=== PATIENT | male | born 1955 | race Caucasian/White ===

== ENCOUNTER 2021-03-03 13:20 | Outpatient (CLI) | payer MEDICARE, SELFPAY ==
--- NOTE | ~2021-03-03 | XR_ITS ---
XR_[id number]_CR 03/03/2021 13:42 Indication: Neck pain Procedure: 3 view cervical spine Comparison: No prior studies for comparison. Findings: Straightening of cervical lordosis. Vertebral body heights are maintained. No fracture or t raumatic malalignment. No prevertebral soft tissue swelling. There are mild uncinate degenerative ju nges. Lung apices are normal. Impression: 1: Mild cervical spondylosis. Reviewed, dictated and finalized at location A. Impression: 1: Mild cervical spondylosis.
== END 2021-03-03 13:21 | disposition home or self-care (01) ==
LOC: ANHIMG 13:27
PROVIDERS: PCP Family Medicine; Visit Provider Family Medicine
DX: M47.892 Other spondylosis, cervical region (principal)
CPT/HCPCS: 72040

== ENCOUNTER 2022-03-30 11:55 | Outpatient (CLI) | payer MEDICARE, SELFPAY ==
--- NOTE | ~2022-03-30 | CT_ITS ---
EXAMINATION: CT abdomen pelvis w con DATE: 03/30/2022 12:26 INDICATION: Left lower quadrant abdominal pain. TECHNIQUE: Computed tomography (CT) of the abdomen and pelvis was performed with 100 mL Omnipaque 300 intravenous contrast. Automated exposure control and iterative reconstruction technique were employe d. The dose-length product was 1362.97 mGy-cm. COMPARISON: None. FINDINGS: The visualized portions of the lung bases demonstrate mild atelectasis. No pleural effusion . The heart size is normal. There are coronary artery calcifications. No pericardial effusion. There is 11 mm cyst in the liver. The gallbladder, spleen, pancreas, adrenal glands, and kidneys are normal . The prostate is severely enlarged. There are changes of bilateral inguinal hernia repairs. There is diverticulosis of the colon without evidence of diverticulitis. There are no dilated loops of bowel. The appendix is normal. There is an umbilical hernia containing fat. There are no pathologically enl arged lymph nodes. There is no free intraperitoneal fluid. There is moderate lumbar spondylosis. Ther e is mild thoracic spondylosis. IMPRESSION: 1. Umbilical hernia containing fat. Reviewed, dictated and finalized at location A.
[2022-03-30 12:23] LABS: Estimated Glomerular Filt Rate > 60
== END 2022-03-30 11:56 | disposition home or self-care (01) ==
PROVIDERS: PCP Family Medicine; Visit Provider Family Medicine
DX: K42.9 Umbilical hernia without obstruction or gangrene (principal)
CPT/HCPCS: 74177; Q9967

== ENCOUNTER 2022-05-10 13:23 | Outpatient (CLI) | payer MEDICARE, SELFPAY ==
[2022-05-10 14:11] LABS: Anion Gap 8 mmol/L (8-16); Blood Urea Nitrogen 17 mg/dL (9-20); Calcium 9.3 mg/dL (8.4-10.2); Carbon Dioxide 29 mmol/L (22-30); Chloride 101 mmol/L (98-107); Estimated Glomerular Filt Rate > 60; Glucose 106 mg/dL (65-110); Potassium 3.5 mmol/L (3.4-5.0); Sodium 138 mmol/L (137-145)
== END 2022-05-10 13:24 | disposition home or self-care (01) ==
LOC: ANHSURGERY 13:33
PROVIDERS: Anesthesiology; PCP Family Medicine; Visit Provider Surgery
DX: I10 Essential (primary) hypertension (principal); Z01.818 Encounter for other preprocedural examination
CPT/HCPCS: 36415; 80048

== ENCOUNTER 2022-05-13 00:56 | Day surgery (SDC) | payer MEDICARE, SELFPAY ==
--- NOTE | 2022-05-07 13:55 | PC.NURSE ---
Report to the Outpatient Waiting Room, entrance under the green pavilion located off [facility], at time _1130 on date _05/13/22 . OR Time: _1:30 PM . - You and your visitor will be asked a series of questions to screen for COVID 19 for your protection. - Only one visitor is allowed at this time. - The patient visitor is requested to leave or wait in car when not with patient. - A mask is required within the hospital. Patients may have clear liquids (water, carbonated beverages, clear teas, apple juice) until 3 hours prior to surgery with a maximum of 20 ounces. - No food from midnight until time of surgery - Infants may have breast milk until 4 hours before surgery, formula 6 hours prior to surgery. - Children will be allowed to drink immediately following surgery. If applicable, please bring a bottle or sippy cup to assist with drinking. Juice, water, soda, and popsicles are readily available. For infants on formula, please bring formula the day of surgery. Pacifiers are allowed. Take the following medications with a SIP of water the morning of surgery: ____SERTRALINE Medications to discontinue per physician __ALL VITAMINS AND SUPPLEMENTS 3 DAYS PRE OP Date to take last dose____05/09/22 Please no make-up, nail upper sorbian, hairspray, perfume, deodorant, or body powder the day of surgery. No jewelry (including any body piercings) or valuables the day of surgery, leave them at home. Please take a shower or bath the night before, or the morning of, surgery with an antibacterial soap. Wear comfortable, loose fitting clothing. Children are encouraged to wear pajamas. - Jewelry must be removed prior to entering the operating room. Rings and piercings that are not removed may be cut off. - The hospital will not accept responsibility for valuables. - Please leave all valuables, including medications, at home the day of surgery. HIBICLENS SHOWER MORNING OF SURGERY If you are going home after surgery, a licensed log truck driver must drive you home. - NO public transportation without another adult. - We recommend that an adult stay with you for 24 hours following discharge. - We also recommend that you do not drive, make important decision, drink alcoholic beverages, or take any drugs that were not prescribed by your health care provider for at least 24 hours after your discharge time. For Pediatric surgeries, we recommend two adults accompany the child home (only one inside the building at this time). Follow any additional instructions given to you from your surgeon. If you or anyone in your household have experienced Covid symptoms in the past week, please notify your surgeon or the nurse liaison at the phone number below for possible testing. Telephone instructions given to __PATIENT and asked if any additional questions and then verbalized understanding. Patient advised to call surgeon office or pre surgery nurse liaison [phone] if any additional questions.
[2022-05-07 14:07] VITALS: BMI 38.7
--- NOTE | 2022-05-13 08:00 | WPDANESEPPF ---
Anes - Initial Pre Proc Eval Procedure: Operation Date: 05/13/22 13:30 Proposed Procedures p Umbilical Hernia Repair, Possible Mesh - Isaias Valladares MD Date/Time: 05/13/22 08:00 Surgeon: Isaias Valladares MD Pre Op Diagnosis: umbilical hernia Patient Data Age: 66 Gender: M Height: 1.78 m Weight: 122.5 kg Allergies Allergy/AdvReac Type Severity Reaction Status Date / Time Fish Containing Products Allergy Severe Swelling Verified 05/13/22 11:38 venom-wasp protein Allergy Severe Hives Verified 05/13/22 11:38 ciprofloxacin [From Cipro] AdvReac Mild Vomiting, Verified 05/13/22 11:38 Stomache Home Medications Medication Instructions Recorded Confirmed Type aspirin 81 mg tablet,delayed 81 mg PO DAILY 09/26/19 05/13/22 History release cholecalciferol (vitamin D3) 50 2,000 unit PO DAILY 09/26/19 05/13/22 History mcg (2,000 unit) tablet lpzqwznt-rca-dqead acid 300 1 tablet PO DAILY 09/26/19 05/13/22 History mcg-lycopene 600 mcg-lutein 300 mcg tablet (Centrum Silver Men) vitamin A-vitamin C-vit E-min 1 tablet PO DAILY 09/26/19 05/13/22 History tablet (Ocutabs tablet) fexofenadine 180 mg tablet 180 mg PO DAILY #90 tabs 01/18/22 05/13/22 Rx omeprazole 20 mg capsule,delayed 20 mg PO DAILY #90 caps 01/18/22 05/13/22 Rx release lisinopril 40 mg tablet See Rx Instructions .Route 03/29/22 05/13/22 Rx .COMPLEX #90 tabs lovastatin 40 mg tablet See Rx Instructions .Route 03/29/22 05/13/22 Rx .COMPLEX #90 tabs triamterene 37.5 See Rx Instructions .Route 03/29/22 05/13/22 Rx mg-hydrochlorothiazide 25 mg tablet .COMPLEX #90 tabs sertraline 50 mg tablet See Rx Instructions .Route 04/01/22 05/13/22 Rx .COMPLEX #90 tabs hydrocodone 5 mg-acetaminophen 325 1 - 2 tablet PO Q6H PRN pain #7 05/13/22 Rx mg tablet tabs ibuprofen 600 mg tablet 600 mg PO Q6H PRN pain #14 tabs 05/13/22 Rx Patient hx anesthesia problems: none Family hx anesthesia problems: none Results Review: All pre-operative results and documents have been reviewed as part of the pre-operative evaluation. [facility] Past Medical History Medical History Allergies Anxiety Family history of colon cancer in mother GERD (gastroesophageal reflux disease) Hyperglycemia Hyperlipidemia Hypertension Surgical History Surgical History Detached retina History of hernia surgery Bilateral inguinal hernia repair History of removal of cyst off chest Family History Family History Mother Hypertension Colon cancer Cerebrovascular accident Father Hypertension Glaucoma Grandparent Uterine cancer Paternal Hypertension Maternal Cerebrovascular accident Maternal Lung cancer maternal Sibling Cerebrovascular accident brother Father Family history of glaucoma Hypertension Mother Hypertension Cerebrovascular accident Carcinoma of colon Grandparent Hypertension Cerebrovascular accident Family history of lung cancer Family history of malignant neoplasm of uterus Sibling Cerebrovascular accident Social History Social History Smoking status: Never smoker Alcohol intake: current Drinks per week: 3 Substance use: never Substance use type: does not use Gender identity (if verbalized by the patient): Male Spiritual care concerns: No Agree to blood products: Yes Anes - Eval Final PreProcedure Day of Procedure 05/13/22 08:00 Patient weight: obese Heart: regular rate and rhythm Lungs: clear to auscultation Airway: Mallampati scale class II Neurological: alert and oriented Last oral intake: >/= 8 hours ASA classification: III Emergent: no Anesthetic plan: proceed Anesthesia type and monitoring: general GIVS and standa
--- NOTE | 2022-05-13 11:55 | WPDANESEPPF ---
Anes - Initial Pre Proc Eval Procedure: Operation Date: 05/13/22 13:30 Proposed Procedures p Umbilical Hernia Repair, Possible Mesh - Isaias Valladares MD Date/Time: 05/13/22 11:55 Surgeon: Isaias Valladares MD Pre Op Diagnosis: umbilical hernia Patient Data Age: 66 Gender: M Height: 1.78 m Weight: 122.5 kg Allergies Allergy/AdvReac Type Severity Reaction Status Date / Time Fish Containing Products Allergy Severe Swelling Verified 05/13/22 11:38 venom-wasp protein Allergy Severe Hives Verified 05/13/22 11:38 ciprofloxacin [From Cipro] AdvReac Mild Vomiting, Verified 05/13/22 11:38 Stomache Home Medications Medication Instructions Recorded Confirmed Type aspirin 81 mg tablet,delayed 81 mg PO DAILY 09/26/19 05/13/22 History release cholecalciferol (vitamin D3) 50 2,000 unit PO DAILY 09/26/19 05/13/22 History mcg (2,000 unit) tablet sbyldfee-lem-eyrqs acid 300 1 tablet PO DAILY 09/26/19 05/13/22 History mcg-lycopene 600 mcg-lutein 300 mcg tablet (Centrum Silver Men) vitamin A-vitamin C-vit E-min 1 tablet PO DAILY 09/26/19 05/13/22 History tablet (Ocutabs tablet) fexofenadine 180 mg tablet 180 mg PO DAILY #90 tabs 01/18/22 05/13/22 Rx omeprazole 20 mg capsule,delayed 20 mg PO DAILY #90 caps 01/18/22 05/13/22 Rx release lisinopril 40 mg tablet See Rx Instructions .Route 03/29/22 05/13/22 Rx .COMPLEX #90 tabs lovastatin 40 mg tablet See Rx Instructions .Route 03/29/22 05/13/22 Rx .COMPLEX #90 tabs triamterene 37.5 See Rx Instructions .Route 03/29/22 05/13/22 Rx mg-hydrochlorothiazide 25 mg tablet .COMPLEX #90 tabs sertraline 50 mg tablet See Rx Instructions .Route 04/01/22 05/13/22 Rx .COMPLEX #90 tabs Patient hx anesthesia problems: none Family hx anesthesia problems: none Results Review: All pre-operative results and documents have been reviewed as part of the pre-operative evaluation. [facility] Past Medical History Medical History Allergies Anxiety Family history of colon cancer in mother GERD (gastroesophageal reflux disease) Hyperglycemia Hyperlipidemia Hypertension Surgical History Surgical History Detached retina History of hernia surgery Bilateral inguinal hernia repair History of removal of cyst off chest Family History Family History Mother Hypertension Colon cancer Cerebrovascular accident Father Hypertension Glaucoma Grandparent Uterine cancer Paternal Hypertension Maternal Cerebrovascular accident Maternal Lung cancer maternal Sibling Cerebrovascular accident brother Father Family history of glaucoma Hypertension Mother Hypertension Cerebrovascular accident Carcinoma of colon Grandparent Hypertension Cerebrovascular accident Family history of lung cancer Family history of malignant neoplasm of uterus Sibling Cerebrovascular accident Social History Social History Smoking status: Never smoker Alcohol intake: current Drinks per week: 3 Substance use: never Substance use type: does not use Living arrangements: with family Gender identity (if verbalized by the patient): Male Spiritual care concerns: No Agree to blood products: Yes Anes - Eval Final PreProcedure Day of Procedure 05/13/22 11:55 Patient weight: obese Heart: regular rate and rhythm Lungs: clear to auscultation Airway: Mallampati scale class II Neurological: alert and oriented Last oral intake: >/= 8 hours ASA classification: III Emergent: no Anesthetic plan: proceed Anesthesia type and monitoring: general GIVS and LMA and standard monitoring Results Review: All pre-operative results and documents have been reviewed as part of the pre-operative evalu
[2022-05-13] MEDS: ACETAMINOPHEN 500 MG TABLET 1000 MG PO (12:13)
[2022-05-13] MEDS: LACTATED RINGERS 1,000 ML 30 ML IV CONT ×2 (12:26→14:45)
[2022-05-13] MEDS: KETOROLAC 15 MG/ML VIAL (*BKC) IV PUSH (12:26)
[2022-05-13 12:56] VITALS: BP 174/73; PULSE 64; RESP 16; TEMP 37.2; O2SAT 98
--- NOTE | 2022-05-13 13:24 | WPDHPUPDATE1 ---
History and Physical Update Update Date/Time: 05/13/22 13:24 History and Physical has been reviewed, including an updated exam of the patient. There are NO changes in the patient's condition. Risks, benefits, and alternatives have been discussed and questions answered. Patient agrees to proceed with procedure.
[2022-05-13] MEDS: ceFAZolin 3 GM/D5W 100 ML 100 ML IVPB (13:44)
[2022-05-13] MEDS: BUPIVACAINE/EPINEPHRINE 0.25% 50 ML VIAL INFILTRATE (14:02)
--- NOTE | 2022-05-13 14:13 | SUR.OPER ---
VENTR[address] ST LOT [id number], EXP 2023-09-06.
[2022-05-13 14:45] VITALS: BP 130/67; PULSE 60; RESP 16
--- NOTE | 2022-05-13 14:50 | P.OP_ITS ---
Procedure Note - Detailed Date of Procedure 05/13/22 Pre-op Diagnosis umbilical hernia Post-op Diagnosis Same Procedure Performed Umbilical hernia repair with Ventralex ST 4.3 cm underlay mesh Surgeon Isaias Valladares MD Principal Examiner EVANGELISTA Quintero Anesthesia General (G IV S) and Local (0.25% Marcaine with epinephrine) Indications Patient was noticing a bulge at the umbilicus and also some abdominal pain. He had a CT scan which showed an umbilical hernia containing fat. Examination also showed an umbilical hernia. He is taken to surgery now for repair. Findings The defect was fairly small, about a cm by 0.4 cm oriented transversely. Description of Procedure Patient was checked in the preoperative holding area. He was then taken to surgery and anesthesia was introduced. The abdomen was prepped and draped. The proposed incision along the lower margin of the umbilicus was drawn on the skin. Local anesthetic was infiltrated into the skin and the deeper subcutaneous tissues. Incision was made and dissection was carried down through the subcutaneous to the hernia. The hernia was dissected free from the subcutaneous and dissected from the umbilical skin as well as the umbilical stalk. The umbilical stalk was freed from the abdominal wall and then we dissected around the hernia defect completely. Additional local was infiltrated into the neck of the hernia and the fascia at the neck. We then divided the hernia sac at its neck and removed the sac as well as herniated properitoneal fat inside it. Defect itself was then checked. I placed a finger in the defect and did not feel any adjacent hernia defects. I cleared a space around the hernia for good apposition of the mesh to the under side of the abdominal wall fascia. Cautery was used for hemostasis. I then undermined the subcutaneous around the hernia defect so that the transfascial sutures could be placed. The 4.[address] hernia patch was chosen. It was placed in the defect and positioned symmetrically. Cranial and caudal transfascial sutures of 0 Ethibond were then placed. Each of these sutures were placed in such a fashion that when tied, they would draw the edges of the hernia defect towards 1 another. Tying down these 2 sutures, that had the desired effect. I then cut the straps to the Ventralex ST mesh. The hernia defect was then closed with [id number] mattress sutures of 0 Ethibond. Each of these sutures incorporated a bit of mesh as well. Once these were tied, the repair looked quite satisfactory. The mesh was completely covered. I infiltrated additional local anesthetic into the fascia all around the repair. I then sutured the umbilical skin to the fascia with interrupted 3-0 Vicryl suture. Some subcutaneous 3-0 Vicryl suture were then placed. The skin was loosely approximated with 4-0 Vicryl subcuticular suture. The skin was finally closed with running 4-0 Monocryl skin suture. Wound was dressed with Exofin surgical adhesive. The patient was awakened and taken to recovery in good condition. Sponge and needle counts were correct x2. Implants 4.[address] hernia patch Estimated Blood Loss -5 Drains No Packing No Pathology None sent Complications No immediate complications Condition Stable Disposition Same day [facility] Billing Surgery - Charge Forward: Surgery Billing (Repair umbilical hernia with mesh)
[2022-05-13 15:15] VITALS: BP 153/74; PULSE 54; RESP 16
[2022-05-13 15:45] VITALS: BP 160/77; PULSE 53; RESP 16
== END 2022-05-13 16:10 | disposition home or self-care (01) ==
PROVIDERS: PCP Family Medicine; Visit Provider Surgery
PROC: (CPT 49585; principal; 2022-05-13 13:30)
DX: K42.9 Umbilical hernia without obstruction or gangrene (principal); I10 Essential (primary) hypertension; E78.5 Hyperlipidemia, unspecified; K21.9 Gastro-esophageal reflux disease without esophagitis; F41.9 Anxiety disorder, unspecified; Z80.0 Family history of malignant neoplasm of digestive organs; E66.9 Obesity, unspecified; Z68.38 Body mass index [BMI] 38.0-38.9, adult; Z79.82 Long term (current) use of aspirin
CPT/HCPCS: 49585; 36415; 80048; A9270; C1781; J0690; J1885; J2704; J3010; J7120

== ENCOUNTER 2023-10-17 12:30 | Outpatient (RCR) | payer MEDICARE, SELFPAY ==
--- NOTE | 2023-08-19 13:12 | PTOPEVAL1 ---
Assessment and note entered by Aster Feliz, PT Evaluation Information Assessment Status Evaluation Diagnosis bilat knee arthritis, bilat knee pain, weakness Subjective Information Reports right knee seems to catch at times Both knees get stiff after getting out of the car when driving for 2 hours States standing long periods, will need to sit for about 15 minutes then can return to activities Is able to do stairs in the normal pattern most of the time depending on how his knees feel Reported Pain Level Pain Score 0: Self Report Assessment PT Clinical Summary Pt presents with bilat primary knee arthritis. Reports will have pain up to a 5/10 at times with catching and stiffness. Worsens with prolonged positions. Evaluation shows decreased ROM of knee, decreased flexibility multiple muscles, decreased strength multiple muscles, mild gait abnormality, and abnormal patellar tracking. Pt will greatly benefit from physical therapy to address deficits and improve function with less pain. Plan of Care Interventions Electrical Stimulation,Gait Training,Hot Pack/Cold Pack,Manual Therapy,Neuro Re-education, Therapeutic Activities,Therapeutic Exercise, Ultrasound PT Services Indicated Yes Treatment Frequency and 1-2x weekly x 4 weeks Duration These treatments will address the objective and functional deficits as defined above. The patient will be advanced safely and appropriately in order for the patient to progress towards his/her prior level of function. Additional exercises will be introduced and as well as a comprehensive home exercise program upon discharge, if needed, ?to ensure carryover of functional gains achieved in the clinic. This treatment plan has been reviewed and agreement upon by the patient.
--- NOTE | 2023-08-19 13:12 | OPREHPOC ---
Outpatient Therapy Plan of Care This is a Multidisciplinary Plan of Care that may contain components documented by all disciplines (PT, OT, and ST.) PT Problem 1 PT Problem #1 Knowledge Deficit PT Goal 1 Goal Pt will be independent in HEP Pt will verbalize understanding of diagnosis and prognosis Target Visit 4 PT Problem 2 PT Problem #2 Pain PT Goal 1 Goal Pt will report greatest pain level at 3/10 or less to improve ADLs Target Visit 4 PT Goal 2 Goal Pt will report resolution of pain to allow maximal independent function Target Visit 8 PT Problem 3 PT Problem #3 Impaired Range of Motion PT Goal 1 Goal Pt will demo AROM of 0-120 bilat knees Target Visit 4 PT Goal 2 Goal Pt will demo AROM of 0-130 bilat knees to show improved capsule extensibility Target Visit 8 PT Problem 4 PT Problem #4 Impaired Flexibility PT Goal 1 Goal Pt will show AROM dorsiflexion bilat 0-10 to shoe improved gastroc flexibility Target Visit 4 PT Goal 2 Goal Pt will show sidleying BLE crossing midline to show improved illiotibial band flexibility Target Visit 8
--- NOTE | 2023-09-16 11:51 | PTOPPROG ---
Assessment and note entered by Aster Feliz, PT Evaluation Information Assessment Status Progress Diagnosis bilat knee arthritis, pain in left and right knees Subjective Information Reports right knee seems to catch at times - improved Both knees get stiff after getting out of the car when driving for 2 hours - is ok with driving 30 minutes and notes this is getting better when getting out of the care Reports knees are doing well, home exercises are helping to get everything realigned . This morning twisted a little and right knee hurt really bad 5-10 seconds then went away . Yesterday was up and down stairs a lot, pain was up to a 5/10 at most. Is feeling better about moving more and doing more since knees are not as bothersome. states he is walking way better . Self-percieved improvement: 50% Assessment PT Clinical Summary Pt reports feeling 50% improved overall, states is able to do more activities with less discomfort. Shows some mild increases in strength and ROM. Cont to demo deficit in ROM, patellar tracking, and strength overall. Has yet to plateau in therapy thus would benefit from continued therapy to improve deficits and pain-free function. Plan of Care Interventions Electrical Stimulation,Gait Training,Hot Pack/Cold Pack,Manual Therapy,Neuro Re-education, Therapeutic Activities,Therapeutic Exercise, Ultrasound PT Services Indicated Yes Treatment Frequency and 1-2x weekly x 4 weeks Duration These treatments will address the objective and functional deficits as defined above. The patient will be advanced safely and appropriately in order for the patient to progress towards his/her prior level of function. Additional exercises will be introduced and as well as a comprehensive home exercise program upon discharge, if needed, ?to ensure carryover of functional gains achieved in the clinic. This treatment plan has been reviewed and agreement upon by the patient.
--- NOTE | 2023-10-17 16:10 | PTOPDC ---
Assessment and note entered by Aster Feliz, PT Assessment Status Discharge Diagnosis bilat knee arthritis Subjective Information Pt reports overall much better Feels the exercises are really helping. States the stretches are helping keep everything loose. Today has continued catching in right knee. Depending on the day, stairs can be good or bad. But this was early in the morning, since warmed up Self-percieved improvement: 80% Reported Pain Level Pain Score 0: Self Report Assessment PT Clinical Summary Pt reports feeling therapy has helped significantly. He still has pain at times but also notes can walk better and faster, feels looser, and having greater ease with ADLs. Pt cont to show decreased ROM bilat knees, however improved flexibility and increased knee strength overall. Pt reports feeling 80% improved overall as well. He was educated on new HEP and continuation of exercise for overall health and fitness. Pt appears to have met max therapy benefit at this time thus is being discharged from plan of care.
== END 2023-10-17 16:15 | disposition home or self-care (01) ==
LOC: ANHHIPT 12:30
PROVIDERS: PCP Family Medicine; Visit Provider Family Medicine
DX: M17.0 Bilateral primary osteoarthritis of knee (principal)
CPT/HCPCS: 97110; 97112; 97140; 97161; 97750

== ENCOUNTER 2023-10-20 02:25 | Day surgery (SDC) | payer MEDICARE, SELFPAY ==
[2023-09-22 16:02] VITALS: BMI 36.0
--- NOTE | 2023-10-18 10:16 | SUR.PREOP ---
Patient called regarding upcoming procedure. messged left on pt's voicemail regarding appointment times.
[2023-10-20 09:19] VITALS: BP 183/78; PULSE 62; RESP 22; TEMP 36.5; O2SAT 100; BMI 38.5
[2023-10-20] MEDS: LACTATED RINGERS 1,000 ML 150 ML IV CONT (09:22)
--- NOTE | 2023-10-20 09:49 | PM.HPGS ---
History of Present Illness History of Present Illness Consent: Risks, benefits, and alternatives have been discussed and questions answered. Patient agrees to proceed with procedure. Chief complaint: fam hx of malignant neoplasm of digestive organs Narrative: Nathan Calloway is a 68 year old male with last colonoscopy 9 years ago, mother had colon cancer Review of Systems Constitutional: Constitutional: Denies headache(s) and Denies weakness Eyes: Eyes: Denies blurry vision ENT: Reports Normal hearing present, Denies headache(s) and Denies neck pain Cardiovascular: Cardiovascular: Denies chest pain and Denies dyspnea Respiratory: Respiratory: Denies dyspnea Gastrointestinal: Gastrointestinal: Reports no additional gastrointestinal complaints Genitourinary: Genitourinary: Denies dysuria Musculoskeletal: Musculoskeletal: Denies neck pain Integumentary/Breasts: Skin/Breast: Denies dry skin Neurologic: Reports Normal hearing present, Denies headache(s) and Denies weakness Psychiatric: Psychiatric: Denies anxiety Endocrine: Endocrine: Denies change in body appearance Hematologic/Lymphatic: Hematologic/Lymphatic: Denies easy bleeding Allergic/Immunologic: Allergic/Immunologic: Denies urticaria [facility] Past Medical History Medical History (Updated 08/03/23 @ 10:37 by Aren Jones MD) Allergies Anxiety Bilateral primary osteoarthritis of knee Elevated fasting glucose Family history of colon cancer in mother GERD (gastroesophageal reflux disease) Hyperglycemia Hyperlipidemia Hypertension Right shoulder pain Skin cyst Surgical History Surgical History Detached retina H/O umbilical hernia repair Umbilical hernia repair with Ventralex ST 4.3 cm underlay mesh 05/13/2022 History of hernia surgery Bilateral inguinal hernia repair History of removal of cyst off chest Family History Family History Mother Hypertension Colon cancer Cerebrovascular accident Father Hypertension Glaucoma Grandparent Uterine cancer Paternal Hypertension Maternal Cerebrovascular accident Maternal Lung cancer maternal Sibling Cerebrovascular accident brother Father Family history of glaucoma Hypertension Mother Hypertension Cerebrovascular accident Carcinoma of colon Grandparent Hypertension Cerebrovascular accident Family history of lung cancer Family history of malignant neoplasm of uterus Sibling Cerebrovascular accident Social History Social History Smoking status: Never smoker Alcohol intake: current Drinks per week: 3 Substance use: never Substance use type: does not use Living arrangements: with family Occupation/Education: retired Gender identity (if verbalized by the patient): Male Spiritual care concerns: No Agree to blood products: Yes Meds Home Medications and Allergies Home Medications Medication Instructions Recorded Confirmed Type aspirin 81 mg tablet,delayed 81 mg PO DAILY 09/26/19 10/20/23 History release cholecalciferol (vitamin D3) 50 2,000 unit PO DAILY 09/26/19 10/20/23 History mcg (2,000 unit) tablet gjinlnnj-ws-sfyju 300 mcg-K 60 1 tablet PO DAILY 09/26/19 10/20/23 History mcg-lycop 600 mcg-lutein 300 mcg tablet (Centrum Silver Men) vitamin A-vitamin C-vit E-min 1 tablet PO DAILY 09/26/19 10/20/23 History tablet (Ocutabs tablet) omeprazole 20 mg capsule,delayed See Rx Instructions .Route 05/18/23 10/20/23 Rx release .COMPLEX #90 caps lisinopril 40 mg tablet See Rx Instructions .Route 06/21/23 10/20/23 Rx .COMPLEX #90 tabs lovastatin 40 mg tablet See Rx Instructions .Route 06/21/23 10/20/23 Rx .COMPLEX #90 tabs sertraline 50 mg tablet See Rx Instructions .Route 09/05/23 10/20/23 Rx .COMPLEX #90 tabs triamter
--- NOTE | 2023-10-20 09:52 | WPDANESEPPF ---
Anes - Initial Pre Proc Eval Procedure: Operation Date: 10/20/23 10:30 Proposed Procedures p Colonoscopy - Ernie Garza MD Date/Time: 10/20/23 09:52 Surgeon: Ernie Garza MD Pre Op Diagnosis: fam hx of malignant neoplasm of digestive organs Patient Data Age: 68 Gender: M Height: 1.78 m Weight: 121.8 kg Last Vital Signs Temp 97.7 F 10/20/23 09:19 Pulse 62 10/20/23 09:19 Resp 22 H 10/20/23 09:19 BP 183/78 H 10/20/23 09:19 Pulse Ox 100 10/20/23 09:19 O2 Del Method Room Air 10/20/23 09:19 Allergies Allergy/AdvReac Type Severity Reaction Status Date / Time Fish Containing Products Allergy Severe Swelling Verified 10/20/23 09:18 venom-wasp protein Allergy Severe Hives Verified 10/20/23 09:18 ciprofloxacin [From Cipro] AdvReac Mild Vomiting, Verified 10/20/23 09:18 Stomache Home Medications Medication Instructions Recorded Confirmed Type aspirin 81 mg tablet,delayed 81 mg PO DAILY 09/26/19 10/20/23 History release cholecalciferol (vitamin D3) 50 2,000 unit PO DAILY 09/26/19 10/20/23 History mcg (2,000 unit) tablet cbgmaczp-jl-[id number] 300 mcg-K 60 1 tablet PO DAILY 09/26/19 10/20/23 History mcg-lycop 600 mcg-lutein 300 mcg tablet (Centrum Silver Men) vitamin A-vitamin C-vit E-min 1 tablet PO DAILY 09/26/19 10/20/23 History tablet (Ocutabs tablet) omeprazole 20 mg capsule,delayed See Rx Instructions .Route 05/18/23 10/20/23 Rx release .COMPLEX #90 caps lisinopril 40 mg tablet See Rx Instructions .Route 06/21/23 10/20/23 Rx .COMPLEX #90 tabs lovastatin 40 mg tablet See Rx Instructions .Route 06/21/23 10/20/23 Rx .COMPLEX #90 tabs sertraline 50 mg tablet See Rx Instructions .Route 09/05/23 10/20/23 Rx .COMPLEX #90 tabs triamterene 37.5 See Rx Instructions .Route 09/05/23 10/20/23 Rx mg-hydrochlorothiazide 25 mg tablet .COMPLEX #90 tabs fexofenadine 180 mg tablet 180 mg PO DAILY #90 tabs 09/06/23 10/20/23 Rx ([facility]a All[facility]) timolol maleate 0.25 % eye drops 1 drp RIGHT EYE DAILY 09/22/23 10/20/23 History Patient hx anesthesia problems: none Family hx anesthesia problems: none Results Review: All pre-operative results and documents have been reviewed as part of the pre-operative evaluation. [facility] Past Medical History Medical History (Updated 08/03/23 @ 10:37 by Aren Jones MD) Allergies Anxiety Bilateral primary osteoarthritis of knee Elevated fasting glucose Family history of colon cancer in mother GERD (gastroesophageal reflux disease) Hyperglycemia Hyperlipidemia Hypertension Right shoulder pain Skin cyst Surgical History Surgical History Detached retina H/O umbilical hernia repair Umbilical hernia repair with Ventralex ST 4.3 cm underlay mesh 05/13/2022 History of hernia surgery Bilateral inguinal hernia repair History of removal of cyst off chest Family History Family History Mother Hypertension Colon cancer Cerebrovascular accident Father Hypertension Glaucoma Grandparent Uterine cancer Paternal Hypertension Maternal Cerebrovascular accident Maternal Lung cancer maternal Sibling Cerebrovascular accident brother Father Family history of glaucoma Hypertension Mother Hypertension Cerebrovascular accident Carcinoma of colon Grandparent Hypertension Cerebrovascular accident Family history of lung cancer Family history of malignant neoplasm of uterus Sibling Cerebrovascular accident Social History Social History Smoking status: Never smoker Alcohol intake: current Drinks per week: 3 Substance use: never Substance use type: does not use Living arrangements: with family Occupation/Education: retired Gender identity (if verbalized by the patien
[2023-10-20 10:09] VITALS: BP 152/80; PULSE 56; RESP 16; O2SAT 98
[2023-10-20 10:19] VITALS: BP 158/81; PULSE 54; RESP 21; O2SAT 96
[2023-10-20 10:29] VITALS: BP 170/77; PULSE 55; RESP 22; O2SAT 97
== END 2023-10-20 10:40 | disposition home or self-care (01) ==
PROVIDERS: PCP Family Medicine; Visit Provider Internal Medicine Gastroenterology
PROC: 0DJD8ZZ Inspection of Lower Intestinal Tract, Via Natural or Artificial Opening Endoscopic (ICD-10-PCS; CPT 45378; principal; 2023-10-20 10:30)
DX: Z12.11 Encounter for screening for malignant neoplasm of colon (principal); K64.8 Other hemorrhoids; K57.30 Diverticulosis of large intestine without perforation or abscess without bleeding; F41.9 Anxiety disorder, unspecified; K21.9 Gastro-esophageal reflux disease without esophagitis; R73.9 Hyperglycemia, unspecified; E78.5 Hyperlipidemia, unspecified; I10 Essential (primary) hypertension; E66.9 Obesity, unspecified; Z68.38 Body mass index [BMI] 38.0-38.9, adult; Z79.82 Long term (current) use of aspirin; Z82.49 Family history of ischemic heart disease and other diseases of the circulatory system; Z80.1 Family history of malignant neoplasm of trachea, bronchus and lung; Z80.49 Family history of malignant neoplasm of other genital organs; Z80.0 Family history of malignant neoplasm of digestive organs
CPT/HCPCS: G0105; J2704; J7120

== ENCOUNTER 2025-03-28 15:45 | Outpatient (RCR) | payer MEDICARE, SELFPAY ==
--- NOTE | 2025-02-15 16:55 | PTOPEVAL1 ---
Assessment and note entered by Aster Feliz, PT Evaluation Information Assessment Status Evaluation ICD-10 Condition Codes (PT) Pain in right shoulder M25.511 Onset chronic Subjective Information Pt reports right shoulder pain. Khadar has been chronic in nature. Went on Vacation a few months ago to [place], but then by the time got home had a bad cold. That lasted 12/04- through December. Would get worse and better, took steroids and antibiotics. During the return to doctor mentioned shoulder pain. No injury he knows of. Pain came on very slowly, maybe a little more annoying now than used to be. At rest is not painful. Sometimes will hurt with activities, sometimes not. Sometimes will hurt at rest and sometimes not. Is just annoying. Maybe sometimes pain will pass the elbow. No overt trends with pain, is pretty sure if reaches up and out is painful but not overt trends . Pain is dull achy in natures Reported Pain Level Pain Score 0: Self Report Assessment PT Clinical Summary Pt presents with right shoulder pain that is chronic in nature, though reports as not severe or consistent. Evaluation shows decreased ROM multiple planes, abnormal postures, (+) weakness and discomfort with internal rotation in multiple positions and posterior glenohumeral joint tenderness. Suggestive of Teres major and/or subscapularis dysfunction with irritation, possible low grade tear or injury. Patient will benefit from physical therapy to address deficits, imrpove ROM and pain, improve strength, and resolve right shoulder deficits. Plan of Care Interventions Electrical Stimulation,Manual Therapy,Mechanical Traction,Neuro Re-education,Patient/Caregiver Education,Therapeutic Activities,Therapeutic Exercise,Self-Care/Home Management,Ultrasound, Other Other Interventions Taping PT Services Indicated Yes Treatment Frequency and 1-2x weekly x 10 visits Duration These treatments will address the objective and functional deficits as defined above. The patient will be advanced safely and appropriately in order for the patient to progress towards his/her prior level of function. Additional exercises will be introduced and as well as a comprehensive home exercise program upon discharge, if needed, ?to ensure carryover of functional gains achieved in the clinic. This treatment plan has been reviewed and agreement upon by the patient.
--- NOTE | 2025-02-15 16:55 | OPREHPOC ---
Outpatient Therapy Plan of Care This is a Multidisciplinary Plan of Care that may contain components documented by all disciplines (PT, OT, and ST.) PT Problem 1 PT Problem #1 Knowledge Deficit PT Goal 1 Goal / Goal Update Pt will be independent in HEP Pt will verbalize understanding of diagnosis and prognosis Target Visit 10 PT Problem 2 PT Problem #2 Pain PT Goal 1 Goal / Goal Update Pt will report greatest pain level at 3/10 or less to improve ADLs and activities Target Visit 10 PT Goal 2 Goal / Goal Update Pt will report resolution of pain to return to PLOF Target Visit 20 PT Problem 3 PT Problem #3 Impaired Strength PT Goal 1 Goal / Goal Update Pt will demonstrate equal strength RUE to LUE Target Visit 10 PT Problem 4 PT Problem #4 Impaired Range of Motion PT Goal 1 Goal / Goal Update Pt will demonstrates ROM WFL RUE without pain Target Visit 10
--- NOTE | 2025-03-29 16:30 | PTOPDC ---
Assessment and note entered by Aster Feliz, PT Evaluation Information Assessment Status Discharge ICD-10 Condition Codes (PT) Pain in right shoulder M25.511 Onset chronic Subjective Information Pt reports is getting better mobility since starting therapy. Is being more conscious of how he is participating in activities and how to modify appropriately to decrease pain. Pt reports pain has maybe eased off a little. Feels like maybe is a 4 compared to a 5 of 10. States can just be sitting and shoulder can hurt pretty bad and then goes away. Feels like is definitely going the right way. Reported Pain Level Pain Score 0: Self Report Assessment PT Clinical Summary Pt has attended therapy consistently 10 visits for right shoulder pain. Unfortunately, he has made little progress in this matter. He continues to have impingement type symptoms with reaching, and shows (+) special testing of the shoulder suggestive of possible underlying pathology. Pt may benefit from further testing or imaging, as therapy does not appear to be assisting in progression at this time. Thus patient is being discharged from POC due to lack of progress. Plan of Care PT Services Indicated No
== END 2025-04-01 10:58 | disposition home or self-care (01) ==
LOC: ANHHIPT 15:45
PROVIDERS: PCP Physician Assistant Medical; Visit Provider Physician Assistant Medical
DX: M25.511 Pain in right shoulder (principal)
CPT/HCPCS: 97014; 97110; 97112; 97140; 97161; 97750; G0283

== ENCOUNTER 2025-08-07 09:44 | Outpatient (CLI) | payer MEDICARE, SELFPAY ==
[2025-08-28 09:07] VITALS: BMI 37.3
--- NOTE | 2025-08-28 09:07 | WPDSLEEPSTUD ---
Sleep Study Date of Study: 08/07/25 Ordering Provider: Luciano Hunt APRN Interpreting Physician: Liya Tinoco DO Sleep Study Type: Split Polysomnogram Height: 1.78 m Weight: 117.934 kg Body Mass Index: 37.3 Neck Circumference (inches): 18 [place]: 4 Reason for Sleep Study Previously diagnosed with sleep apnea 25 years ago. He paid out of pocket for a Remstar machine and 2 travel CPAPs. No one has been monitoring his data. He states that he uses his machine every night. Sleep History The patient is a 69-year-old male that had a sleep study ordered by the Pulmonary group for evaluation of sleep apnea. The patient denies awakening from sleep short of breath. He denies awakening at night with heartburn, belching or cough. He frequently snores and is frequently loud enough that others complain. He occasionally has trouble sleeping when he has a cold. He denies waking up gasping for air throughout the night. He denies having breathing problems at night observed by himself or others. He rarely sweats excessively at. He rarely has heart palpitations or irregular heartbeats during the night. He rarely falls asleep during the day but never while. He denies sleep paralysis, cataplexy and hypnagogic/ hypnopompic hallucinations. He denies having trouble at school or work due to sleepiness. He denies feeling afraid of going to sleep. He rarely has nightmares. He rarely remembers his dreams. He rarely has thoughts racing through his mind. He denies feeling sad or depressed. He occasionally has anxiety. He rarely has muscular tension. He occasionally notices parts of his body jerk. He rarely kicks during the night. He rarely has crawling and aching feelings in his legs but occasionally has leg pain during the. He denies grinding his teeth during sleep and denies awakening with morning jaw pain. He is frequently bothered by pain during the day but never awakened by pain during the night. He rarely wakes up feeling stiff in the morning. He denies waking up with sore or achy muscles. He denies waking up with pain in the neck, spine and other joints. He goes to bed between 9-11 p.m. every night. It takes him no more than 15 minutes to fall asleep. He wakes up 3-4 times throughout the night for reasons and is able to fall back asleep relatively quickly. He wakes up between 730-9 a.m. every morning. He typically gets 8-10 hours of sleep per night. He will stay in bed for less than 30 minutes after waking up in the morning. He currently lives with his . He denies consuming any caffeinated beverages within 2 hours of bedtime. He denies engaging in physical exercise before bedtime. He will read watch television before falling asleep. He will occasionally take naps in they are refreshing. He consumes 3 caffeinated beverages per day. He consumes 3 alcoholic beverages per week. He denies tobacco and recreational drug use PMF Past Medical History Medical History Vitamin D deficiency Prostate cancer 04/2025 Vertigo HERSON on CPAP Right shoulder pain Bilateral primary osteoarthritis of knee Family history of colon cancer in mother Hyperglycemia Hyperlipidemia Hypertension GERD (gastroesophageal reflux disease) Anxiety Allergies Surgical History Surgical History H/O umbilical hernia repair Umbilical hernia repair with Ventralex ST 4.3 cm underlay mesh 05/13/2022 History of removal of cyst off chest, head and back Detached retina History of hernia surgery Bilateral inguinal hernia repair Family History Family History Mother Hypertension Colon cancer Cerebrovascular accident Father Hypertension Glaucoma Grandparent Uterine cancer Paternal Hypertension Maternal Cerebrovascular accident Maternal Lung cancer maternal Sibling Cerebrovascular accident brother Father Family history of glaucoma Hypertension Mother Hypertension Cerebrovascular accident Carcinoma of colon Grandparent Hypertension Cerebrovascular accident Family history of lung cancer Family history of malignant neoplasm of uterus Sibling Cerebrovascular accident Social History Social History Social History: 05/16/25 somewhat confident with medical forms 08/05/25 Patient declined SDOH Smoking status: Never smoker Alcohol intake: current Drinks per week: 3 Substance use: never Substance use type: does not use Do You Feel Safe in your Home?: Yes Lack of Transportation: No Lack of Food: Never True Current Housing: I Have Housing Concerned About Future Housing: No Difficulty Paying Gas/Electric Bills: No Difficulty Paying for Meds: No Currently Unemployed: No Education: Bachelor's Degree Difficulty w/ Childcare or Family Care: No Living arrangements: with family Occupation/Education: retired Gender identity (if verbalized by the patient): Male Spiritual care concerns: No Agree to blood products: Yes Medications Home Medications ?Medication ?Instructions ?Recorded ?Confirmed ?Type aspirin 81 mg tablet,delayed 81 mg PO DAILY 09/26/19 08/12/25 History release cholecalciferol (vitamin D3) 50 2,000 unit PO DAILY 09/26/19 08/12/25 History mcg (2,000 unit) tablet [id number] 300 mcg-K 60 1 tablet PO DAILY 09/26/19 08/12/25 History mcg-lycop 600 mcg-lutein 300 mcg tablet (Centrum Silver Men) vitamin A-vitamin C-vit E-min 1 tablet PO DAILY 09/26/19 08/12/25 History tablet (Ocutabs tablet) brimonidine 0.1 % eye drops 3 drp RIGHT EYE DAILY 02/05/25 08/12/25 History fexofenadine 180 mg tablet 180 mg PO DAILY #90 tabs 02/05/25 08/12/25 Rx (Alla Allergy) lovastatin 40 mg tablet 40 mg PO DAILY #90 tabs 02/05/25 08/12/25 Rx lisinopril 40 mg tablet 40 mg PO DAILY #90 tabs 08/05/25 08/12/25 Rx omeprazole 20 mg capsule,delayed 20 mg PO DAILY #90 caps 08/05/25 08/12/25 Rx release triamterene 37.5 1 tablet PO DAILY #90 tabs 08/05/25 08/12/25 Rx mg-hydrochlorothiazide 25 mg tablet calcium 600 mg (as carbonate)-vit tablet PO 08/12/25 08/12/25 History D3 10 mcg (400 unit) chewable tablet (Calcium 600 with Vitamin D3) timolol maleate 0.5 % once daily 1 drp EACH EYE Q12H 08/12/25 08/12/25 History eye drops sertraline 50 mg tablet 50 mg PO DAILY #90 tabs 08/19/25 Rx Sleep Procedure A full night split study using the [email or web address] multi-channel system recorded the standard physiologic parameters including EEG, EOG, submentalis EMG, anterior tibialis EMG, EKG, body position, nasal and oral airflow using nasal pressure sensor and thermistor.? Respiratory parameters of chest and abdominal movements were recorded with Respiratory Inductance Plethysmography belts. Oxygen saturation was recorded by pulse oximetry. Video monitoring was also performed. Sleep stages, periodic limb movements, and EEG arousals were scored in 30 second epochs according to the criteria of the AASM Scoring Manual. The Apnea-Hypopnea Index was calculated using CMS guidelines for definition of hypopnea with 4% O2 desaturations while scoring respiratory events. Sleep Architecture During the diagnostic portion of the study, the total recording time was 208.8 minutes. The total sleep time was 137.0 minutes. Sleep latency was 13.8 minutes.? REM sleep was not achieved during this portion of the study. Sleep Efficiency was 65.6%. The patient had 29 awakenings for an awakening index of 12.7. Wake after sleep onset time was 58.0 minutes. The patient spent 52.5 minutes, 38.3% of total sleep time in Stage N1. The patient spent 84.5 minutes, 61.7% in Stage N2. The patient spent 0.0 minutes, 0.0% in Stage N3. The patient spent 0.0 minutes, 0.0% in Stage REM sleep. At 01:44:39 AM the patient was placed on PAP treatment and was titrated at pressures ranging from 5 cm H20 up to 12 cm H20. During the treatment portion of the study, the total recording time was 275.0 minutes.? The total sleep time was 197.5 minutes. Sleep latency was 15.0 minutes. REM latency was 70.5 minutes. Sleep Efficiency was 71.8%. Wake after Sleep Onset time was 63.0 minutes. The patient spent 17.0 minutes, 8.6% of total sleep time in Stage N1. The patient spent 138.0 minutes, 69.9% in Stage N2. The patient spent 0.0 minutes, 0.0% in Stage N3. The patient spent 42.5 minutes, 21.5% in Stage REM. Respiratory Analysis During the diagnostic portion of the study, the patient had 23 hypopneas, 3 obstructive apneas and 4 central apneas for an overall Apnea Hypopnea Index of 13.1 events per hour. The REM Apnea Hypopnea Index was 0. The NREM Apnea Hypopnea Index was 13.1. The patient had a Central Apnea Hypopnea Index of 1.8.There was no evidence of Casey-Leonard Respirations. During the treatment portion of the study, the patient had 20 hypopneas, 1 obstructive apnea and 5 central apneas for an overall Apnea Hypopnea Index of 7.9 events per hour. The REM Apnea Hypopnea Index was 9.9. The NREM Apnea Hypopnea Index was 7.4. The patient had a Central Apnea Hypopnea Index of 1.5. There was no evidence of Casey-Leonard Respirations. The patient was started on CPAP 5 cm H2O and titrated to CPAP 12 cm H2O due to hypopneas. The patient was able to fall asleep starting on CPAP 5 cm H2O. The patient was able to achieve REM sleep starting on CPAP 8 cm H2O. The patient was able to achieve a residual AHI less than 5 in the supine position on the final pressure setting. On CPAP 12 cm H2O, the patient spent 23 minutes in NREM with 1 hypopnea, resulting in an AHI of 2.6. The patient had a sleep efficiency of 92% on this pressure setting. Arousals During the diagnostic portion of the study, there were a total of 249 arousals for an arousal index of 109.1.? There were 21 respiratory arousals for an index of 9.2. There were 201 periodic limb movement arousals for an index of 88.0.? There were 1 isolated limb movement arousals for an index of 0.4. There were 27 spontaneous arousals for an index of 11.8. During the treatment portion of the study, there were a total of 92 arousals for an index of 27.9.? There were 8 respiratory arousals for an index of 2.4. There were 18 periodic limb movement arousals for an index of 5.5.? There were 6 isolated limb movement arousals for an index of 1.8. There were 60 spontaneous arousals for an index of 18.2. Periodic Limb Movements During the diagnostic portion of the study, the patient had 5 isolated limb movements with an index of 2.2. The patient had 500 periodic limb movements with an index of 219.0, which is elevated (normal < 15). The patient had a total of 505 limb movements with a total limb movement index of 221.2. During the treatment portion of the study, the patient had 13 isolated limb movements with an index of 3.9. The patient had 155 periodic limb movements with an index of 47.1, which is elevated (normal < 15). The patient had a total of 168 limb movements with a total limb movement index of 51.0. Oximetry Data During the diagnostic portion of the study, the patient had an average oxygen saturation of 94.5% in wake with a minimum oxygen saturation of 89% and a maximum oxygen saturation of 98%. The patient had an average oxygen saturation of 94.0% in sleep with a minimum oxygen saturation of 89.0% and a maximum oxygen saturation of 97.0%. The patient had 38 oxygen desaturations resulting in an Oxygen Desaturation Index of 16.6. The patient spent 0 minutes of total sleep time with an oxygen saturation less than 88%. During the treatment portion of the study, the patient had an average oxygen saturation of 95.3% in wake with a minimum oxygen saturation of 90.0% and a maximum oxygen saturation of 98.0%. The patient had an average oxygen saturation of 93.4% in sleep with a minimum oxygen saturation of 85.0% and a maximum oxygen saturation of 98.0%. The patient had 31 oxygen desaturations resulting in an Oxygen Desaturation Index of 9.4. The patient spent 0.8 minutes, 0.3% of total sleep time with an oxygen saturation less than 88%. Snoring Profile Mild snoring was present in the baseline portion of the study. The snoring resolved once the patient was titrated to CPAP 11 cm H2O. Cardiac Profile The EKG lead showed normal sinus rhythm with rare PVCs. During the diagnostic portion of the study, the average pulse rate was 51.6 bpm.? The minimum pulse rate was 47.0 bpm. The maximum pulse rate was 58.0 bpm. During the treatment portion of the study, the average pulse rate was 46.6 bpm.? The minimum pulse rate was 41.0 bpm. The maximum pulse rate was 62.0 bpm. EEG Profile No signs of seizure activity seen. Assessment and Plan Assessment and Plan (1) HERSON (obstructive sleep apnea): Code(s): G47.33 - Obstructive sleep apnea (adult) (pediatric) Status: Acute Assessment and Plan: In the baseline portion of the study, the patient had an overall AHI of 13.1 with desaturation down to 89%. This is consistent with mild sleep apnea. Due to the patient's hypertension, he qualifies for treatment.The patient was started on CPAP 5 cm H2O and titrated to CPAP 12 cm H2O due to hypopneas. The patient's sleep apnea resolved on the final pressure setting. I recommend that the patient be prescribed CPAP 12 cm H2O, standard size Resmed AirTouch N30i nasal mask, CPAP filters/heated tubing and heated humidity. This should be used with all episodes of sleep.? Compliance should be reviewed within 31-90 days of starting therapy for usage greater than 4 hours per night greater than 70% of the nights. The patient should be asked about symptoms such as?excessive daytime sleepiness, quality of sleep, decreased nocturia, increased?mental functioning such as memory, mood, and concentration. Data The data obtained during this sleep study is adequate for interpretation. Certification This sleep study has been reviewed by a board certified sleep medicine physician.
== END 2025-08-08 07:21 | disposition home or self-care (01) ==
PROVIDERS: PCP Physician Assistant Medical; Visit Provider Nurse Practitioner Family
DX: G47.30 Sleep apnea, unspecified (principal); G47.33 Obstructive sleep apnea (adult) (pediatric)
CPT/HCPCS: 95811

== ENCOUNTER 2025-08-07 12:28 | Outpatient (CLI) | payer MEDICARE, SELFPAY ==
--- NOTE | ~2025-08-07 | PE_ITS ---
EXAMINATION: PET_PETPSMAST_PT DATE: 08/07/2025 15:04 INDICATION: Prostate cancer TECHNIQUE: 4.414 mCi of Illucix Ga-68([id number]) was administered i.v. Low dose computed tomography (CT) images were acquired from the base of the brain to the base of the brain to the proximal thighs for attenuation correction and anatomic localization. Positron emission tomography (PET) images were acquired in the same distribution beginning 69 minutes after injection. Images including fused PET/CT images were reconstructed in axial, coronal, and sagittal planes. Automated exposure control technique was employed. The dose-length product was 1366.19mGy-cm. COMPARISON: None FINDINGS: Head/neck: Typical pattern of symmetric physiologic increased activity in the lacrimal, parotid and submandibular glands as well as along the mucosa of the nasal and oral cavities, pharynx and hypopharynx. No pathologically enlarged cervical lymphadenopathy or suspicious foci of increased uptake in the visualized head or neck. Chest: Calcified left lower lobe nodule and calcified left hilar lymph nodes consistent with old granulomatous disease. Mild discoid atelectasis at the inferior lingula. No suspicious pulmonary nodules, pneumonia or pleural effusion. Cardiomegaly. Atherosclerotic coronary artery calcification. No pericardial effusion. Thoracic aorta is normal in caliber. No pathologically enlarged or PSMA avid thoracic lymphadenopathy. Abdomen/pelvis/proximal thighs: Physiologic renal accumulation and excretion of activity in the kidneys, bladder and along portions of ureters. Prostatomegaly measuring 6.6 x 4.5 cm. There is a small region of relatively mild activity with maximal SUV of 3.6 at the central aspect of the prostate. Normal degree and slightly heterogenous pattern of increased uptake throughout the liver and spleen without radiologic correlate or dominant PSMA avid lesion. The gallbladder, pancreas and bilateral adrenal glands are normal. Moderate uptake scattered throughout the bowels with typical duodenal and proximal jejunal predominance and without radiologic correlate, also likely physiologic. There are few scattered clonic diverticula without a djacent inflammatory stranding to suggest diverticulitis. Normal appendix. Postoperative change of bilateral inguinal hernia repairs. No other abnormal foci of increased uptake or pathologically enlarged lymphadenopathy in the abdomen, pelvis or proximal thighs. Musculoskeletal: Moderate cervical, thoracic and lumbar spondylosis. No suspicious lytic, blastic or abnormally PSMA avid bone lesions. IMPRESSION: 1. Small focus of relatively mild activity in the central prostate likely representing the site of the reported primary prostate cancer. No PSMA avid lesions suspicious for metastatic disease. Reviewed, dictated and finalized at location A. IMPRESSION: 1. Small focus of relatively mild activity in the central prostate likely repre senting the site of the reported primary prostate cancer. No PSMA avid lesions suspicious for metastatic disease.
--- OUTSIDE RECORDS SUMMARY | 2025-08-07 13:43 | XMS_ITS | Clinical Summary ---
Author Organization [facility] Address [address] [place] [id number] Care Team Providers Care Hand Stoner Name Role Phone Unavailable Primary Care Provider Unavailabl e Social History Tobacco Use Types Packs/Day Years Used Date Smoking Tobacco: Never Assessed Sex and Gender Information Value Date Recorded Sex Assigned at Not on file Legal Sex Male 10:13 PM CDT Gender Identity Not on file Sexual Orientation Not on file Plan of Treatment Health Maintenance Due Date Last Done Comments Colorectal Cancer Screening Colonoscopy (10 Years) 1954 Hepatitis C 1972 DTaP, Tdap and Td Vaccines ( 1 - Tdap) 1973 Pneumococcal Vaccine: 50+ Ye ars (1 of 1 - PCV) 2004 Zoster Vaccines (1 of 2) 2004 COVID-19 Vaccine ( - 2024-2 6 season) 2025 Influenza Adult (#1) 2025 RSV Immunization or 60+ Years (1 - 1-dose 75+ series) 2029 Hepatitis A Vaccines Aged Out No long er eligible based on patient's age to complete this topic Meningococcal B Vaccine Aged Out No l onger eligible based on patient's age to complete this topic Meningococcal Vaccine Aged Out No lizet jack eligible based on patient's age to complete this topic RSV Immunizations Under 20 Months Aged Out No longer eligible based on patient's age to complete this topic
== END 2025-08-07 12:29 | disposition home or self-care (01) ==
PROVIDERS: PCP Physician Assistant Medical; Visit Provider Radiology Radiation Oncology
DX: C61 Malignant neoplasm of prostate (principal)
CPT/HCPCS: 78815; A9596